=== PATIENT | female | born 1995 | race Caucasian/White ===

== ENCOUNTER 2020-08-15 22:02 | Outpatient (CLI) | payer OTHER | END 2020-08-15 22:03 | disposition critical access hospital (66) | LOC: EMS 22:02 | PROVIDERS: ATTEND Emergency Medicine | DX: R07.9 Chest pain, unspecified (principal); R06.02 Shortness of breath | CPT/HCPCS: A0425; A0429 ==

== ENCOUNTER 2020-08-15 22:23 | Emergency (ER) | payer OTHER ==
--- NOTE | 2020-08-15 22:42 | ED Physician Documentation ---
History of Present Illness - Stated complaint Stated Complaint: CP/ - History obtained from History obtained from: Patient - Additonal information Additional information: 25-year-old woman with history of depression and anxiety, not currently on medications presents with panic attack this evening. patient states she was drinking alcohol but denies other drug use. She began to feel gradual onset chest heaviness associated with feeling of anxiety and inability to catch her breath that progressively worsened to the extent that it was severe by the time EMS arrived. They reported that they coached her breathing down and she says that this helped significantly. Upon arrival in the emergency department her symptoms had resolved. Patient denies feeling ill recently. Denies FH childhood cardiac disease or heart problems at a young age. denies DAVIS or exertional CP. Review of Systems Ten Systems: 10 systems reviewed and negative Constitutional: denies: Fever Cardiac: reports: Chest pain / pressure Respiratory: reports: Dyspnea. denies: Cough Psychiatric: reports: Depressed, Anxiety PD PAST MEDICAL HISTORY - Present Medications Home Medications: Ambulatory Orders Medication Instructions Recorded Confirmed Norelgestromin/Ethin.estradiol 08/15/20 [Xulane Patch] - Allergies Allergies/Adverse Reactions: Allergies Allergy/AdvReac Type Severity Reaction Status Date / Time No Known Drug Allergies Allergy Verified 08/15/20 22:48 PD ED PE NORMAL - Vitals Vital signs reviewed: Yes - General General: Alert and oriented X 3, No acute distress, Well developed/nourished - HEENT HEENT: Atraumatic, PERRL, EOMI - Neck Neck: Supple, no meningeal sign - Cardiac Cardiac: RRR, No murmur, No gallop, No rub - Respiratory Respiratory: No respiratory distress, Clear bilaterally - Abdomen Abdomen: Non tender, Non distended - Derm Derm: Normal color - Extremities Extremities: No deformity, No edema - Neuro Neuro: Alert and oriented X 3 - Psych Psych: Normal mood, Normal affect Results - Vitals Vitals: Vital Signs - 24 hr 08/15/20 08/15/20 22:25 22:44 Temperature 36.7 C Heart Rate 114 H 100 Respiratory 18 15 Rate Blood Pressure 129/87 H 121/80 O2 Saturation 97 98 Oxygen O2 Source Room air - EKG (time done) 2232 Rate: Rate (enter#) (97) Rhythm: NSR [place]: Normal Intervals: Normal SD QRS: Normal Ischemia: Normal ST segments (benign early repol) - Labs Labs: Laboratory Tests 08/15/20 23:43 Urine HCG, Qual NEGATIVE PD MEDICAL DECISION MAKING - ED course ED course: 25-year-old woman presented with apparent panic attack, now resolved. Extensive education given about management of anxiety as well as mental health resources in the area including [facility]. Because she is [place] she was advised to first go to [facility] to see what resources are available. Strict return precautions given. Departure - Departure Disposition: 01 Home, Self Care Clinical Impression: Panic attack Condition: Good Instructions: ED Panic Attack Comments: You were seen in the emergency department for a severe anxiety attack. [facility] may be a good option for you to coordinate follow up mental health care. You can also follow up with [facility] [place] further [place] health resources. You should return to the emergency department if you have any new or worsening symptoms, thoughts of suicide or other concerns. [facility] [address], [place] [address] ~6.1 ri Discharge Date/Time: 08/16/20 00:02
[2020-08-15 22:51] VITALS: BP 121/80
[2020-08-15 23:51] LABS: HCG UR QUAL NEGATIVE
== END 2020-08-16 00:02 | disposition home or self-care (01) ==
LOC: ED 22:23 → EEVIPCON 22:23 → ED 08-16 00:02
DX: F41.0 Panic disorder [episodic paroxysmal anxiety] (principal)
CPT/HCPCS: 81025; 93005; 99283; 99284

== ENCOUNTER 2021-04-03 21:51 | Emergency (ER) | payer OTHER ==
[2021-04-03] MEDS ORDERED: MIDAZOLAM 10 MG/5 ML UDC PO STA (22:02)
[2021-04-03 22:03] VITALS: BP 145/109
[2021-04-03] MEDS ORDERED: BACITRACIN ZINC OINT 1 PACKET TOP STA (22:03)
[2021-04-03] MEDS ORDERED: TETANUS/DIPHTHERIA/PERTUSSIS 0.5 ML SYRINGE IM ONE (22:03)
[2021-04-03] MEDS ORDERED: ACETAMINOPHEN 325 MG TABLET PO STA (23:37)
[2021-04-03] MEDS ORDERED: oxyCODONE 5 MG TABLET PO STA (23:38)
[2021-04-03] MEDS ORDERED: ONDANSETRON ODT 4 MG TABLET TL STA (23:38)
--- NOTE | 2021-04-03 23:39 | ED Physician Documentation ---
History of Present Illness - Stated complaint Stated Complaint: RT HAND PX/LAC INJ - Chief complaint Chief Complaint: Laceration - History obtained from History obtained from: Patient - Additonal information Additional information: 26yF p/w R fifth dorsal hand laceration after punching a picture on the wall while arguing with her boyfriend. patient states she has depression and has been on an SSRI since august, seeing a counselor the past month. denies HI/AVH but does endorse increased depression lately and states she felt distraught during her argument and "wanted to hurt myself". Denies active suicidal plan at present. endorses passive occasional thoughts that she would be better off if she wasn't alive. No access to guns in the home. contracts for safety. Review of Systems Skin: reports: Laceration (s) Musculoskeletal: reports: Extremity pain. denies: Joint pain Psychiatric: reports: Depressed, Anxiety PD PAST MEDICAL HISTORY - Past Surgical History Past Surgical History: No - Present Medications Home Medications: Ambulatory Orders Medication Instructions Recorded Confirmed Norelgestromin/Ethin.estradiol 08/15/20 [Xulane Patch] - Allergies Allergies/Adverse Reactions: Allergies Allergy/AdvReac Type Severity Reaction Status Date / Time No Known Drug Allergies Allergy Verified 04/03/21 22:00 - Social History Does the pt smoke?: No Smoking Status: Never smoker PD ED PE NORMAL - Vitals Vital signs reviewed: Yes - General General: Alert and oriented X 3, No acute distress, Well developed/nourished - HEENT HEENT: Atraumatic, PERRL, EOMI - Derm Derm: Normal color, Warm and dry, Other (1cm superficial laceration of R fifth metacarpal region at dorsal aspect. ) - Extremities Extremities: Other (2+ radial pulse to R hand. normal strength, sensation, cap refill, rom. no bony ttp) - Neuro Neuro: Alert and oriented X 3, No motor deficit, No sensory deficit - Psych Psych: Other (depressed mood and affect. denies active SI/HI/AVH) Results - Vitals Vitals: Vital Signs - 24 hr 04/03/21 21:57 Temperature 37.3 C Heart Rate 124 H Respiratory 18 Rate Blood Pressure 145/109 H O2 Saturation 97 Oxygen O2 Source Room air Procedures - Laceration (location) Hand right Wound type: Flap Neurovascular status: Sensory intact, Motor intact Tendon involvement: Tendon intact Anesthesia: Lidocaine 1%, With bicarb Wound preparation: Irrigated copiously NS Skin layer closure: Nylon, Interrupted, Size #-0 - enter number (4), Sutures - enter # (3) Other: Patient tolerated well, No complications, Neurovascular intact, Dressing applied, Tetanus booster given PD MEDICAL DECISION MAKING - ED course ED course: 11:30PM - Patient vomited, stating she is developing a headache and still has pain in her hand. percocet and zofran ordered. Laceration repaired and education given about wound care. return precautions given. plan to f/u for suture removal in 14 days. Departure - Departure Disposition: 01 Home, Self Care Clinical Impression: Laceration of hand Condition: Good Instructions: ED Laceration Hand Comments: You are seen in the emergency department after injuring your hand. 3 stitches were placed which need to be removed in 14 days. You do not have a break in the bone. Please take ibuprofen 400 mg every 6 hours as needed for pain with a snack. Return to the emergency department if you have any new or worsening symptoms, signs of infection or other concerns. Follow-up with your primary doctor and with your mental health counselor. Please return to the emergency department if you have active thoughts of suicide or self-harm. This is a safe place and is available 24/ if you feel unsafe at home. National Suicide Prevention Lifeline Hours: Available 24 hours. Languages: Kosovan, Faroese. [phone]
[2021-04-04] MEDS ORDERED: BUFFERED LIDOCAINE 10 ML SYRINGE SUBQ STA (00:10)
--- NOTE | 2021-04-04 01:24 | XRAY Report ---
PROCEDURE: Hand 3 View RT INDICATIONS: lac over R 5th metatarsal after punching a picture TECHNIQUE: 4 views of the hand(s) acquired. COMPARISON: None FINDINGS: Bones: No fractures or dislocations. No suspicious bony lesions. Soft tissues: No suspicious soft tissue calcifications. IMPRESSION: No fracture. No osseous lesion. If there are persistent symptoms or continued clinical concern for pa thology, then repeat plain film radiographs (7-10 days) or advanced imaging (CT, MR, bone scan) shoul d be considered for further evaluation. Reviewed by: Anjelica Estrada MD, PhD on 04/04/2021 1:23 AM PDT Approved by: Anjelica Estrada MD, PhD on 04/04/2021 1:23 AM PDT Station ID: [id number]
== END 2021-04-04 02:06 | disposition home or self-care (01) ==
LOC: ED 21:51
DX: S61.411A Laceration without foreign body of right hand, initial encounter (principal); W25.XXXA Contact with sharp glass, initial encounter; W22.09XA Striking against other stationary object, initial encounter; Y93.89 Activity, other specified; Z23 Encounter for immunization; R51.9 Headache, unspecified; R11.10 Vomiting, unspecified; F32.9 Major depressive disorder, single episode, unspecified
CPT/HCPCS: 12001; 73130; 90471; 90715; 99282; 99283; A9270; Q0162